=== PATIENT | female | born 1930 | race Caucasian/White ===

== ENCOUNTER 2016-07-07 17:15 | Inpatient (IN) | payer MEDICARE, BC ==
[~2016-07-07] VITALS: Ht 157.5 cm; Wt 65.0 kg
[2016-07-07 17:52] VITALS: BP 104/78; PULSE 102; TEMP 97.8
[2016-07-07 18:00] VITALS: BP 150/76
[2016-07-07] MEDS ORDERED: ALEVE 220MG220 MG PO (18:20)
[2016-07-07] MEDS ORDERED: URECHOLINE 25MG25 MG PO (18:21)
[2016-07-07] MEDS ORDERED: PROAIR HFA0.09 MG/AC IH (18:23)
[2016-07-07] MEDS ORDERED: COLESTID 1GM1 G PO (18:23)
[2016-07-07] MEDS ORDERED: IPRATROPIUM BROM3 M1 IH (18:24)
[2016-07-07] MEDS ORDERED: MELAT3MGTAB PO (18:25)
[2016-07-07] MEDS ORDERED: OMEGA-3 1000 MG1 CAP PO (18:26)
[2016-07-07] MEDS ORDERED: PRIMROSE OIL PO (18:27)
[2016-07-07] MEDS ORDERED: ASPIRIN 81M81 MG/TA2 PO (18:28)
[2016-07-07 18:30] VITALS: BP 156/72
[2016-07-07] MEDS ORDERED: CEFTIN 250250 MG/TAB PO (18:31)
[2016-07-07] MEDS ORDERED: ANORO IH (18:31)
[2016-07-07] MEDS ORDERED: PRILOSEC 20MG20 MG PO (18:32)
[2016-07-07] MEDS ORDERED: REQUIP2 MG PO (18:33)
[2016-07-07] MEDS ORDERED: SINGULAIR 110 MG/TAB PO (18:33)
[2016-07-07 19:57] LABS: PH 5 (5-8); SQUAMOUS EPITHELIAL 0-2 /hpf; URINE APPEARANCE Hazy; URINE BACTERIA None Seen /hpf; URINE BILIRUBIN Negative (NEGATIVE); URINE BLOOD 2+ (NEGATIVE); URINE COLOR Yellow; URINE GLUCOSE Negative (NEGATIVE); URINE KETONE Trace (NEGATIVE); URINE UROBILINOGEN Negative (NEGATIVE); URINE WBC >50 /hpf
[2016-07-07 21:10] VITALS: BP 148/50; PULSE 70; TEMP 99.5
[2016-07-08] VITALS (14 sets, daily range): BP systolic 98–168; BP diastolic 53–625; PULSE 58–100; TEMP 97.1–100.5
[2016-07-08 07:09] LABS: CALCIUM 8.5 mg/dL (8.4-10.2); CREATININE, serum 1.03 mg/dL (0.52-1.25); POTASSIUM 3.8 mmol/L (3.4-5.0)
[2016-07-08 07:15] LABS: HEMATOCRIT 29.4 % (37.0-47.0); HEMOGLOBIN 9.7 g/dl (12.5-16.0); MEAN CELL VOLUME 94 fl (80.0-100.0); MEAN CORPUSCULAR HEMOGLOBIN 31 pg (27.0-31.0); MEAN CORPUSCULAR HGB CONC 33 g/dl (33.0-37.0); MEAN PLATELET VOLUME 10.5 fl (7.4-10.4); PLATELET COUNT 200 K/mm3 (130-400); RED BLOOD COUNT 3.14 M/mm3 (4.10-5.30); REDCELL DISTRIBUTION WIDTH-CV 13.3 % (11.5-14.5); WHITE BLOOD COUNT 8.5 K/mm3 (4.8-10.8)
[2016-07-08 07:22] LABS: INR 1.1 (0.8-3.0); PROTHROMBIN TIME 12.4 SECONDS (9.7-12.8)
[2016-07-08 10:07] LABS: TROPONIN-I 0.03 ng/mL (0.000-0.034)
[2016-07-09 02:29] VITALS: BP 117/59; PULSE 97; TEMP 98.1
[2016-07-09 05:20] VITALS: BP 118/59; PULSE 71; TEMP 98.2
[2016-07-09 07:18] LABS: HEMATOCRIT 25.9 % (37.0-47.0); HEMOGLOBIN 8.1 g/dl (12.5-16.0)
[2016-07-09 09:59] VITALS: BP 110/53; PULSE 100; TEMP 97.3
[2016-07-09 13:04] LABS: HEMATOCRIT REF 30.3 % (37.0-47.0)
[2016-07-09 14:04] VITALS: BP 102/45; PULSE 94; TEMP 98
[2016-07-09 17:15] VITALS: BP 108/59; PULSE 70; TEMP 97.9
[2016-07-09 21:14] VITALS: BP 110/53; PULSE 106; TEMP 98.5
[2016-07-10] VITALS (14 sets, daily range): BP systolic 95–126; BP diastolic 41–77; PULSE 49–120; TEMP 97–98.8
[2016-07-10 07:00] LABS: HEMATOCRIT 23.2 % (37.0-47.0); HEMOGLOBIN 7.4 g/dl (12.5-16.0)
[2016-07-10] MEDS ORDERED: CEFTIN 250250 MG/TAB PO (10:13)
[2016-07-10] MEDS ORDERED: MULTIPLE VITAMI1 TA5 PO (10:14)
[2016-07-10] MEDS ORDERED: MILK OF MA400 MG/52 PO (10:15)
[2016-07-10] MEDS ORDERED: SENOKOT S 50 MG1 TAB PO (10:15)
[2016-07-10] MEDS ORDERED: VITAMINC500CH PO (10:15)
[2016-07-10] MEDS ORDERED: OYSCO 500500 M1 PO (10:16)
[2016-07-10] MEDS ORDERED: DULCOLAX S10 MG/SUPP RC (10:16)
[2016-07-10] MEDS ORDERED: NORCO 325 MG-51 TAB PO (10:17)
[2016-07-10] MEDS ORDERED: TYLENOL 325MG325 MG PO (10:18)
[2016-07-11 02:30] VITALS: BP 119/61; PULSE 72; TEMP 98.2
[2016-07-11 04:55] VITALS: BP 131/60; PULSE 72; TEMP 97.5
[2016-07-11 07:51] LABS: HEMATOCRIT 29.4 % (37.0-47.0); HEMOGLOBIN 9.8 g/dl (12.5-16.0)
[2016-07-11 09:53] VITALS: BP 131/44; PULSE 87; TEMP 98.4
[2016-07-11] MEDS ORDERED: XARELTO10 MG PO (12:09)
== END 2016-07-11 13:00 | DRG 470 ==
LOC: SURG 17:15
PROVIDERS: Internal Medicine; Orthopaedic Surgery
PROC: 0JH606Z Insertion of Pacemaker, Dual Chamber into Chest Subcutaneous Tissue and Fascia, Open Approach (ICD-10-PCS; 2016-07-08)
PROC: 02H63JZ Insertion of Pacemaker Lead into Right Atrium, Percutaneous Approach (ICD-10-PCS; 2016-07-08)
PROC: 02HK3JZ Insertion of Pacemaker Lead into Right Ventricle, Percutaneous Approach (ICD-10-PCS; 2016-07-08)
PROC: 0SRR0J9 Replacement of Right Hip Joint, Femoral Surface with Synthetic Substitute, Cemented, Open Approach (ICD-10-PCS; principal; 2016-07-08 12:00)
DX: S72.001A Fracture of unspecified part of neck of right femur, initial encounter for closed fracture (principal); N39.0 Urinary tract infection, site not specified; D62 Acute posthemorrhagic anemia; W00.0XXA Fall on same level due to ice and snow, initial encounter; J44.9 Chronic obstructive pulmonary disease, unspecified; I10 Essential (primary) hypertension; N30.20 Other chronic cystitis without hematuria; B96.1 Klebsiella pneumoniae [K. pneumoniae] as the cause of diseases classified elsewhere; I44.1 Atrioventricular block, second degree; D50.0 Iron deficiency anemia secondary to blood loss (chronic)
CPT/HCPCS: 99222-AI; 99232-AI; 99239; A9284; C1713; C1769; C1776; C1785; C1894; C1898; J0171; J0330; J0690; J0744; J1100; J1650; J1940; J2250; J2270; J2704; J3010; J7030; J7050; P9016

== ENCOUNTER 2016-07-11 13:15 | Inpatient (IN) | payer MEDICARE, BC ==
[~2016-07-11] VITALS: Ht 157.5 cm; Wt 70.2 kg
[~2016-07-11 13:15] MED LIST: ALEVE 220MG220 MG PO; ANORO IH; ASPIRIN 81M81 MG/TA2 PO; CEFTIN 250250 MG/TAB PO; COLESTID 1GM1 G PO; DULCOLAX S10 MG/SUPP RC; IPRATROPIUM BROM3 M1 IH; MELAT3MGTAB PO; MILK OF MA400 MG/52 PO; MULTIPLE VITAMI1 TA5 PO; NORCO 325 MG-51 TAB PO; OMEGA-3 1000 MG1 CAP PO; OYSCO 500500 M1 PO; PRILOSEC 20MG20 MG PO; PRIMROSE OIL PO; PROAIR HFA0.09 MG/AC IH; REQUIP2 MG PO; SENOKOT S 50 MG1 TAB PO; SINGULAIR 110 MG/TAB PO; TYLENOL 325MG325 MG PO; URECHOLINE 25MG25 MG PO; VITAMINC500CH PO; XARELTO10 MG PO
[2016-07-11 16:53] VITALS: BP 142/61; PULSE 94; TEMP 97.5
[2016-07-11 16:57] VITALS: BP 142/61; PULSE 95; TEMP 97.1
[2016-07-12 06:50] VITALS: BP 147/68; PULSE 100; TEMP 97.5
[2016-07-12 16:55] VITALS: BP 152/56; PULSE 90; TEMP 97.4
[2016-07-13 04:22] VITALS: BP 149/55; PULSE 91; TEMP 98
[2016-07-13 17:08] VITALS: BP 129/60; PULSE 98; TEMP 97.7
[2016-07-14 06:20] VITALS: BP 111/60; PULSE 68; TEMP 97.4
[2016-07-14 07:24] LABS: MEAN CELL VOLUME 93 fl (80.0-100.0); MEAN CORPUSCULAR HGB CONC 33 g/dl (33.0-37.0); MEAN PLATELET VOLUME 10.3 fl (7.4-10.4); PLATELET COUNT 235 K/mm3 (130-400); RED BLOOD COUNT 3.13 M/mm3 (4.10-5.30); REDCELL DISTRIBUTION WIDTH-CV 14.4 % (11.5-14.5); WHITE BLOOD COUNT 6.6 K/mm3 (4.8-10.8)
[2016-07-14 07:26] LABS: ADD PATHOLOGY DIFF REVIEW NO; HEMOGLOBIN 9.5 g/dl (12.5-16.0); MEAN CORPUSCULAR HEMOGLOBIN 30 pg (27.0-31.0)
[2016-07-14 07:51] LABS: BAND 9 % (0-10); EOSINOPHIL 1 % (0-4); METAMYELOCYTE 1 % (0-0); NEUTROPHILS 69 % (42.0-75.2); PLATELET ESTIMATE NORMAL (NORMAL); TOTAL CELLS COUNTED 100
[2016-07-14 16:43] VITALS: BP 133/54; PULSE 94; TEMP 98.3
[2016-07-15 03:55] VITALS: BP 133/54; PULSE 74; TEMP 98.3
[2016-07-15 16:21] VITALS: BP 127/68; PULSE 120; TEMP 98.2
[2016-07-16 04:23] VITALS: BP 142/73; PULSE 57; TEMP 98.1
[2016-07-16 16:43] VITALS: BP 156/61; PULSE 107; TEMP 97.9
[2016-07-17 04:12] VITALS: BP 152/77; PULSE 107; TEMP 98.6
[2016-07-17 16:29] VITALS: BP 160/70; PULSE 93; TEMP 97.8
[2016-07-18 04:12] VITALS: BP 160/68; PULSE 108; TEMP 98.4
[2016-07-18 18:00] VITALS: BP 141/50; PULSE 95; TEMP 97.5
[2016-07-19 05:17] VITALS: BP 137/55; PULSE 75; TEMP 97.4
[2016-07-19 18:57] VITALS: BP 148/69; PULSE 84; TEMP 97.5
[2016-07-20 05:40] VITALS: BP 133/49; PULSE 90; TEMP 97.6
[2016-07-20 16:32] VITALS: BP 127/56; PULSE 88; TEMP 97.9
[2016-07-21 04:38] VITALS: BP 134/55; PULSE 75; TEMP 97
[2016-07-21 17:36] VITALS: BP 136/51; PULSE 87; TEMP 98.4
[2016-07-22 04:21] VITALS: BP 105/51; BP 132/46; PULSE 64; PULSE 67; TEMP 100.4; TEMP 97
[2016-07-22 16:00] VITALS: BP 128/57; PULSE 82; TEMP 97.8
[2016-07-23 04:11] VITALS: BP 151/64; PULSE 85; TEMP 97.5
[2016-07-23] MEDS ORDERED: CEFTIN 250250 MG/TAB PO (06:46)
[2016-07-23] MEDS ORDERED: XARELTO10 MG PO (06:49)
[2016-07-23] MEDS ORDERED: NORCO 325 MG-51 TAB PO (06:50)
== END 2016-07-23 10:35 | disposition home or self-care (01) | DRG 560 ==
PROVIDERS: Internal Medicine
DX: S72.001D Fracture of unspecified part of neck of right femur, subsequent encounter for closed fracture with routine healing (principal); N39.0 Urinary tract infection, site not specified; S72.401D Unspecified fracture of lower end of right femur, subsequent encounter for closed fracture with routine healing; W00.0XXD Fall on same level due to ice and snow, subsequent encounter; Z95.0 Presence of cardiac pacemaker; J44.9 Chronic obstructive pulmonary disease, unspecified; I10 Essential (primary) hypertension; Z95.5 Presence of coronary angioplasty implant and graft; D64.9 Anemia, unspecified
CPT/HCPCS: 99222-AI; 99232-AI; 99239